=== PATIENT | male | born 1945 | race Caucasian/White ===

== ENCOUNTER → 2016-06-08 | Day surgery (SDC) | payer MEDICARE, OTHER ==
[2014-07-25 07:40] VITALS: BMI 31.4
[~2016-06-08] MED LIST: BSS 500 ml-Vancomycin 10 mg-Phenylephrine 1 mg Irrigation IR ONE; CHONDROITIN SULFATE 0.5 ML/PFS INTRAOC ONE; DEXAMETHASONE 4 MG/ML VIAL IV PRN; DIAZEPAM 5 MG TAB PO PRN; FENTANYL 100 MCG/2 ML VIAL IV PRN; FENTANYL 100 MCG/2 ML VIAL ONE; HYDROCODONE 5 MG/ACETAMIN 325 MG TAB PO PRN; Hyaluronate Sodium (Provisc) 5.5 mg/0.55 ml syringe INTRAOC ONE; KETOROLAC TROMETH 30 MG/ML VIAL IV PRN; LABETALOL 20 MG/4 ML SYRINGE IV PRN; LR 1,000 ML IV ONE; LR 1,000 ML IV SCH; MIDAZOLAM 2 MG/2 ML VIAL ONE; NS 1,000 ML IV SCH; NS 250 ML IV SCH; ONDANSETRON HCL 4 MG/2 ML VIAL IV PRN; PHENYLEPHRINE 2.5% OPHTH SOLN 2 ML BOT OP EYE ONE; SCOPOLAMINE TRANSDERMAL PATCH TOP PRN; TETRACAINE 0.5% 2 ML OPHTH SOLN OP EYE ONE; TETRACAINE 0.5% 2 ML OPHTH SOLN OP EYE PRN; TROPICAMIDE 1% OPHTH SOLN 2 ML BOTTLE OP EYE ONE; Vancomycin 10 MG, Phenylephrine 1,000 MCG in Balanced Salt Solution 500 ML IO ONE; hydrALAZINE 20 MG/ML VIAL IV PRN
--- NOTE | 2016-06-08 09:12 | SC.ANESEVA ---
Anesthesia Eval & Plan ([facility]) - Providers Stated Procedure: left eye cataract surgery Surgeon:: Jeane Burgos - Medications/Allergies Allergies: Allergies sulfamethoxazole Allergy (Verified 07/25/14 07:27) Constipation LOWERS PLATELETS trimethoprim Allergy (Verified 07/24/14 14:07) Unknown Home Medications: Home Medication List Bisoprolol Fumarate [Zebeta] 5 mg PO DAILY 05/19/16 [History] Current Medication List: Reviewed - Focused Physical Exam NPO since: after Midnight Mallampati: Class II Neck: Full Range of Motion Cardiovascular/Chest: Normal Respiratory: Lungs clear Any problems with anesthesia, including nausea and vomiting?: No Any relatives with a history of Malignant Hyperthermia?: No Prone to Motion Sickness: No Other: Diagnoses COMBINED FORMS OF AGE-RELATED CATARACT, LEFT EYE (06/08/16) Allergies Allergy/AdvReac Type Severity Reaction Status Date / Time sulfamethoxazole Allergy Constipatio Verified 07/25/14 07:27 n trimethoprim Allergy Unknown Verified 07/24/14 14:07 Home Medications Medication Instructions Recorded Last Taken Type Aspirin [Aspirin EC] 81 mg PO DAILY 07/24/14 07/18/14 History Doxycycline Hyclate 100 mg PO DAILY 07/24/14 07/24/14 History Losartan Potassium 100 mg PO DAILY 07/24/14 07/25/14 04:30 History Rosuvastatin [Crestor] 10 mg PO HS 07/24/14 07/24/14 History Bisoprolol Fumarate [Zebeta] 5 mg PO DAILY 05/19/16 Unknown History Height and Weight Patient's height 5 ft 6 in Patient's weight 88.451 kg BMI 31.4 - Anesthetic Plan Anesthesia Type: MAC ASA Class: 3 - Focused Review of Systems Cardiac History: Yes: Hx Hypertension, Hx Cardiac Disorders, Hx Abnormal Cholesterol/Hyperlipidemia HEENT: Yes: Hx Vision Problem (GLASSES), Other HEENT Problems Respiratory: Yes: Hx Snoring No: Hx Pneumonia Gastrointestinal: Yes: Hx Gastrointestinal Disorders, Hx Diverticulosis, Hx Colonoscopy Neurological/Musculoskeletal: No: Hx Neurological Disorders Blood/Autoimmune: No: Hx AIDS, Hx Hepatitis (type) Smoking Status: Current some day smoker Other Surgical History: T AND A
--- NOTE | 2016-06-08 09:43 | HIMOPRPT ---
DATE OF PROCEDURE: 06/08/16 PREOPERATIVE DIAGNOSIS: Cataract Left eye. POSTOPERATIVE DIAGNOSIS: Cataract Left eye. PROCEDURE: Cataract extraction by phacoemulsification of the Left eye SURGEON: Jeane Burgos MD. ANESTHESIA: IV Sedation/Topical. COMPLICATIONS: None. PRE-OPERATIVE EVALUATION: The patient has been examined and deemed medically stable for cataract extraction with no apparent need for inpatient observation; outpatient setting is appropriate. Patient appears to be oriented to time, place and person. PROCEDURE IN DETAIL: The correct eye confirmed by patient, doctor, staff and paperwork. The operative eye was then marked by the doctor in the preoperative area. Eye drops were instilled into the operative eye to dilate the pupil. The patient was transported to the operating room and was placed in the supine position. A time out was performed before the beginning of the procedure. The operative eye was prepped and draped in the usual sterile fashion for ophthalmic surgery, taking care to isolate the lashes from the surgical field. Topical anesthetic drops were instilled into the operative eye. A lid speculum was placed. Betadine 5% was instilled in the operative eye for antiseptic. Microscope was brought into place for use throughout the case. The eye was inspected. A paracentesis incision was created with a side port knife. The temporal limbal corneal incision was performed with a ethan blade. Viscoelastic was injected into the anterior chamber. Capsule forceps were used to create a capsulorhexis. Hydrodissection was performed with BSS. The nucleus was removed by phacoemulsification. Phaco time is noted below. The remaining cortical material was removed by I&A. The capsular bag was noted to be intact and distended with viscoelastic. The Intraocular lens was placed into the intact bag and centered without difficulty. The remaining viscoelastic was removed by I&A. Betadine 5% drops were placed to inspect wound and for antisepsis. Inspection revealed watertight wounds. The lid speculum was removed. Postoperative medications were instilled into the eye and a shield secured over the operative eye. IOL Type [id number] 001 IOL Power 17 CDE 6.33 Discharge Summary: There were no complications and the patient was taken to the postoperative area in good condition. Postoperative instructions and outpatient follow up time were given.
[2016-06-08 09:57] VITALS: TEMP 97.7
[2016-06-08 09:58] VITALS: BP 156/93; PULSE 61
--- NOTE | 2016-06-08 11:00 | SC.ANESPOS ---
Post-Anesthesia Note LOC: Fully Awake Post-Anesthesia Assessment: Awake, Returned to Baseline, Hemodynamically Stable , Pain Control Adequate Phase I & II Recovery Complete: Yes Apparent Anesthesia Complication: No : N - Vital Signs Blood Pressure: 156/93 Pulse: 61 Resp Rate: 16 O2 Sat: 99 Temp: 97.7 F
== END ==
LOC: CPSC 07:45
PROVIDERS: ATTEND Ophthalmology
PROC: 08RK3JZ Replacement of Left Lens with Synthetic Substitute, Percutaneous Approach (ICD-10-PCS; principal; 2016-06-08 13:30)
DX: H25.812 Combined forms of age-related cataract, left eye (principal); I10 Essential (primary) hypertension; Z79.82 Long term (current) use of aspirin; Z79.899 Other long term (current) drug therapy; F17.200 Nicotine dependence, unspecified, uncomplicated; E78.00 Pure hypercholesterolemia, unspecified
CPT/HCPCS: 66984; A9270; V2632; J2250; J3010; J3490